=== PATIENT | female | born 1955 | race Caucasian/White ===

== ENCOUNTER → 2017-07-09 | Outpatient (CLI) | payer BC ==
--- NOTE | 2017-07-10 13:34 | MM ---
Reason for exam: screening (asymptomatic). Last mammogram was performed 1 year and 2 months ago. History: Patient is postmenopausal. Stereotactic core biopsy, March 16, 2002. Physical Findings: A clinical breast exam by your physician is recommended on an annual basis and results should be correlated with mammographic findings. MG Screening Mammo w CAD Bilateral CC and MLO view(s) were taken. Prior study comparison: May 15, 2016, bilateral MG screening mammo w CAD. April 04, 2015, bilateral MG screening mammo w CAD. August 25, 2013, bilateral digital screening mammo w/CAD. There are scattered fibroglandular densities. No significant changes when compared with prior studies. ASSESSMENT: Negative, BI-RAD 1 RECOMMENDATION: Routine screening mammogram of both breasts in 1 year.
== END | disposition home or self-care (01) ==
LOC: RADMAMWWP 16:46
PROVIDERS: ATTEND Internal Medicine
DX: Z12.31 Encounter for screening mammogram for malignant neoplasm of breast (principal)

== ENCOUNTER → 2018-08-06 | Outpatient (CLI) | payer BC ==
--- NOTE | 2018-08-07 11:50 | MM ---
Reason for exam: screening (asymptomatic). Last mammogram was performed 1 year and 1 month ago. History: Patient is postmenopausal. Stereotactic core biopsy, March 16, 2002. Physical Findings: A clinical breast exam by your physician is recommended on an annual basis and results should be correlated with mammographic findings. MG Screening Mammo w CAD Bilateral CC and MLO view(s) were taken. Prior study comparison: July 09, 2017, bilateral MG screening mammo w CAD. May 15, 2016, bilateral MG screening mammo w CAD. There are scattered fibroglandular densities. There is no discrete abnormality. No significant changes when compared with prior studies. ASSESSMENT: Negative, BI-RAD 1 RECOMMENDATION: Routine screening mammogram of both breasts in 1 year.
== END | disposition home or self-care (01) ==
LOC: RADMAMWWP 16:45
PROVIDERS: ATTEND Internal Medicine
DX: Z12.31 Encounter for screening mammogram for malignant neoplasm of breast (principal)
CPT/HCPCS: 77067

== ENCOUNTER → 2018-09-09 | Outpatient (CLI) | payer BC ==
--- NOTE | 2018-09-09 08:37 | US ---
EXAMINATION TYPE: US gallbladder DATE OF EXAM: 09/09/2018 COMPARISON: NONE CLINICAL HISTORY: 63-year-old female R10. 1 Right upper quad pain,. RUQ pain, NPO, no surgeries TECHNIQUE: Multiple sonographic images of the right upper quadrant are obtained. FINDINGS: EXAM MEASUREMENTS: Liver Length: 12.6 cm Gallbladder Wall: 0.1 cm CHD: 3.4 mm Right Kidney: 8.5 x 3.8 x 4.1 cm Pancreas: Suboptimal visualization of the pancreatic tail secondary to overlying bowel gas. Visualiz ed pancreatic head and body shows no gross abnormality. Liver: Some limitations due to rib shadowing. Overall homogeneous echotexture without focal lesion. Gallbladder: wnl Evidence for sonographic Liu's sign: neg CBD: Obscured by overlying bowel gas CHD: wnl Right Kidney: wnl IMPRESSION: 1. Limited visualization of the pancreatic tail. Rib shadowing and bowel gas limits portions of the l iver and lower bile duct as well. 2. Otherwise, no specific abnormality seen.
== END | disposition home or self-care (01) ==
LOC: RADUSWWP 07:26
PROVIDERS: ATTEND Internal Medicine Interventional Cardiology
DX: R14.3 Flatulence (principal); R10.11 Right upper quadrant pain
CPT/HCPCS: 76705

== ENCOUNTER → 2018-11-27 | Outpatient (CLI) | payer BC ==
--- NOTE | 2018-11-27 12:22 | XR ---
EXAMINATION TYPE: XR knee complete LT DATE OF EXAM: 11/27/2018 CLINICAL HISTORY: Left knee pain. TECHNIQUE: Three views of the left knee are obtained. COMPARISON: None. FINDINGS: There is no acute fracture/dislocation evident in left knee. There is mild to moderate tri compartment joint space loss. A fabella is present. The overlying soft tissue appears unremarkable. IMPRESSION: As above.
--- NOTE | 2018-11-27 13:24 | US ---
EXAMINATION TYPE: US venous doppler duplex LE LT DATE OF EXAM: 11/27/2018 12:47 PM COMPARISON: NONE CLINICAL HISTORY: M25.562 ACUTE PAIN OF LEFT KNEE. SIDE PERFORMED: Left TECHNIQUE: The lower extremity deep venous system is examined utilizing real time linear array sonog guanaco with graded compression, doppler sonography and color-flow sonography. VESSELS IMAGED: External Iliac Vein (EIV) Common Femoral Vein Deep Femoral Vein Greater Saphenous Vein * Femoral Vein Popliteal Vein Small Saphenous Vein * Proximal Calf Veins (* superficial vessels) Grayscale, color doppler, spectral doppler imaging performed of the deep veins of the left lower extr emity. There is normal flow, compressibility, vascular waveforms. Left Leg: Negative for DVT Popliteal fossa cyst noted measuring 3.0 x 3.1 x 1.0cm IMPRESSION: 1. No sonographic evidence of deep venous thrombosis within the left lower extremity. 2. Popliteal fossa cyst measuring 3.1 cm.
== END | disposition home or self-care (01) ==
LOC: RADUSWWP 11:56
PROVIDERS: ATTEND Internal Medicine
DX: M71.22 Synovial cyst of popliteal space [Baker], left knee (principal); M25.862 Other specified joint disorders, left knee

== ENCOUNTER → 2019-09-21 | Outpatient (CLI) | payer OTHER ==
--- NOTE | 2019-09-22 09:44 | MM ---
Reason for exam: screening (asymptomatic). Last mammogram was performed 1 year and 2 months ago. History: Patient is postmenopausal. Stereotactic core biopsy, March 16, 2002. Took hormonal contraceptives for 5 years. Took other hormone for 1 year. Physical Findings: A clinical breast exam by your physician is recommended on an annual basis and results should be correlated with mammographic findings. MG Screening Mammo w CAD Bilateral CC and MLO view(s) were taken. Prior study comparison: August 06, 2018, bilateral MG screening mammo w CAD. July 09, 2017, bilateral MG screening mammo w CAD. There are scattered fibroglandular densities. No suspicious abnormality. No significant changes when compared with prior studies. ASSESSMENT: Negative, BI-RAD 1 RECOMMENDATION: Routine screening mammogram of both breasts in 1 year.
== END | disposition home or self-care (01) ==
LOC: RADMAMWWP 16:49
PROVIDERS: ATTEND Internal Medicine
DX: Z12.31 Encounter for screening mammogram for malignant neoplasm of breast (principal)
CPT/HCPCS: 77067

== ENCOUNTER → 2020-05-17 | Outpatient (CLI) | payer OTHER ==
[2020-05-17 11:51] LABS: Appearance,Urine Clear (Clear); Bilirubin,Urine Negative (Negative); Blood,Urine Negative (Negative); Color,Urine Yellow; Glucose,Urine (UA) Negative (Negative); Ketones,Urine Negative (Negative); Leukocyte Esterase,Urine Negative (Negative); Nitrite,Urine Negative (Negative); PH, Urine 5.5 (5.0-8.0); Protein,Urine Trace (Negative); Urobilinogen,Urine <2.0 mg/dL (<2.0)
[2020-05-17 12:31] LABS: Basophils # (A) 0.1 k/uL (0-0.2); Basophils % (A) 1 %; Eosinophils # (A) 0.2 k/uL (0-0.7); Eosinophils % (A) 3 %; HCT 40.7 % (34.0-46.0); HGB 13.6 gm/dL (11.4-16.0); Lymphocytes # (A) 1.3 k/uL (1.0-4.8); Lymphocytes % (A) 26 %; MCHC 33.4 g/dL (31.0-37.0); MCV 89.9 fL (80.0-100.0); Mean Platelet Volume 7.9; Monocytes # (A) 0.4 k/uL (0-1.0); Monocytes % (A) 9 %; Neutrophils # (A) 2.8 k/uL (1.3-7.7); Neutrophils % (A) 58 %; Platelet Count 234 k/uL (150-450); RBC 4.52 m/uL (3.80-5.40); RDW 12.9 % (11.5-15.5); WBC 4.9 k/uL (3.8-10.6)
[2020-05-17 13:14] LABS: Protein/Creatinine Ratio,Urine 0.086
[2020-05-17 17:33] LABS: ALT 20 U/L (8-44); AST 23 U/L (13-35); African American GFR (CKD) 90.9 (60.0-200.0); Albumin/Globulin Ratio 1.91 (1.60-3.17); Alkaline Phosphatase 94 U/L (41-126); C Reactive Protein <0.4 mg/dL (0.0-0.8); Globulin 2.3 g/dL (1.6-3.3); Non-African American GFR(CKD) 78.5 (60.0-200.0); Rheumatoid Factor, Qnt 9 IU/mL (0-15); Total Bilirubin 0.3 mg/dL (0.3-1.2); Total Protein 6.7 g/dL (6.2-8.2)
[2020-05-17 18:31] LABS: Hepatitis A Antibody IgM Non-Reactive (Non-Reactive); Hepatitis B Core IgM Non-Reactive (Non-Reactive); Hepatitis B Surface Antigen Non-Reactive (Non-Reactive); Hepatitis C IgG Antibody Non-Reactive (Non-Reactive)
[2020-05-17 18:34] LABS: Anti-Smith Ab Interp NEGATIVE (NEGATIVE); Cyclic Citrull Pep IgG Unit 1.1 U/mL; Cyclic Citrullinated Pep IgG NEGATIVE (NEGATIVE); DNA Double-Stranded NEGATIVE (NEGATIVE)
[2020-05-17 20:14] LABS: Erythrocyte Sedimentation Rate 29 mm/Hr (0-30)
[2020-05-18 11:29] LABS: ANA Pattern Speckled
[2020-05-18 12:05] LABS: Immunoglobulin M 58.3 mg/dL (40.0-280.0)
[2020-05-18 13:47] LABS: Albumin 4.13 g/dL (3.80-4.90)
== END | disposition home or self-care (01) ==
LOC: LABWHC1 11:00
PROVIDERS: ATTEND Internal Medicine
DX: M32.9 Systemic lupus erythematosus, unspecified (principal); Z79.899 Other long term (current) drug therapy; R53.83 Other fatigue; R80.9 Proteinuria, unspecified
CPT/HCPCS: 36415; 80074; 80076; 81003; 82565; 82570; 82784; 84156; 84165; 84166; 85025; 85652; 86038; 86039; 86140; 86160; 86200; 86225; 86235; 86431

== ENCOUNTER → 2021-04-12 | Outpatient (CLI) | payer OTHER ==
--- NOTE | 2021-04-16 08:44 | MM ---
Reason for exam: screening (asymptomatic). Last mammogram was performed 1 year and 7 months ago. History: Patient is postmenopausal. Stereotactic core biopsy, March 16, 2002. Took hormonal contraceptives for 5 years. Took other hormone for 1 year. Physical Findings: A clinical breast exam by your physician is recommended on an annual basis and results should be correlated with mammographic findings. MG Screening Mammo w CAD Bilateral CC and MLO view(s) were taken. Prior study comparison: September 21, 2019, bilateral MG screening mammo w CAD. August 06, 2018, bilateral MG screening mammo w CAD. There are scattered fibroglandular densities. No significant changes when compared with prior studies. ASSESSMENT: Benign, BI-RAD 2 RECOMMENDATION: Routine screening mammogram of both breasts in 1 year.
== END | disposition home or self-care (01) ==
LOC: RADMAMWWP 16:02
PROVIDERS: ATTEND Internal Medicine
DX: Z12.31 Encounter for screening mammogram for malignant neoplasm of breast (principal); Z78.0 Asymptomatic menopausal state
CPT/HCPCS: 77067

== ENCOUNTER 2021-07-04 00:40 | Emergency (ER) | payer MEDICARE, OTHER ==
[2021-07-04 02:44] LABS: Basophils # (A) 0.1 k/uL (0-0.2); Basophils % (A) 1 %; Eosinophils # (A) 0.5 k/uL (0-0.7); Eosinophils % (A) 6 %; HCT 42.5 % (34.0-46.0); HGB 14.3 gm/dL (11.4-16.0); Lymphocytes # (A) 1.4 k/uL (1.0-4.8); Lymphocytes % (A) 18 %; MCH 30.6 pg (25.0-35.0); MCHC 33.5 g/dL (31.0-37.0); MCV 91.2 fL (80.0-100.0); Mean Platelet Volume 8.4; Monocytes # (A) 0.7 k/uL (0-1.0); Monocytes % (A) 8 %; Neutrophils # (A) 5.1 k/uL (1.3-7.7); Neutrophils % (A) 63 %; Platelet Count 251 k/uL (150-450); RBC 4.66 m/uL (3.80-5.40); RDW 12.6 % (11.5-15.5)
[2021-07-04 02:55] LABS: ALT 16 U/L (4-34); AST 28 U/L (14-36); African American GFR (CKD) >90 (>60 ml/min/1.73 sqM); Albumin 4.1 g/dL (3.5-5.0); Alkaline Phosphatase 139 U/L (38-126); Anion Gap 12 mmol/L; Blood Urea Nitrogen 13 mg/dL (7-17); Calcium 9.6 mg/dL (8.4-10.2); Carbon Dioxide 22 mmol/L (22-30); Chloride 106 mmol/L (98-107); Glucose 101 mg/dL (74-99); Lipase 118 U/L (23-300); Magnesium 1.9 mg/dL (1.6-2.3); Non-African American GFR(CKD) 87 (>60 ml/min/1.73 sqM); Potassium 3.8 mmol/L (3.5-5.1); Sodium 140 mmol/L (137-145); Total Bilirubin 0.4 mg/dL (0.2-1.3); Total Protein 7.2 g/dL (6.3-8.2)
[2021-07-04 02:56] LABS: Creatine Kinase 73 U/L (30-135); Creatine Kinase MB 1.4 ng/mL (0.0-2.4); Troponin I <0.012 ng/mL (0.000-0.034)
--- NOTE | 2021-07-04 03:34 | CT ---
EXAMINATION TYPE: CT angio chest DATE OF EXAM: 07/04/2021 COMPARISON: None HISTORY: SOB CT DLP: 261.8 mGycm Automated exposure control for dose reduction was used. CONTRAST: Performed with IV Contrast, patient injected with 65 mL of Isovue 370. There are 3-D post processed images. There is pulmonary emphysema. There is coarse reticular density in both lungs consistent with fibrosi s. There is a 1.5 cm stellate noncalcified density in the right middle lobe. There is large hiatal he rnia. Heart size is normal. There is no pericardial effusion. There are no hilar masses. There is no mediastinal adenopathy. Thoracic aorta is atheromatous. There is no aneurysm or dissection. The ascen ding aorta measures 3.4 cm. There is normal contrast opacification of the pulmonary arteries. There are no filling defects. Bony thorax is intact. There is normal alignment of the thoracic vertebra. There is minor spurring in the thoracic spine. Sternum is intact. The ribs appear intact. IMPRESSION: COPD and pulmonary fibrosis. There is no evidence of pulmonary embolism. Irregular 1.5 cm noncalcifie d infiltrate in the right middle lobe. Follow-up recommended. Tumor not excluded.
[2021-07-04] MEDS ORDERED: methylPREDNISolone SOD SUCCI 125 MG/2 ML VIAL ONE (23:59)
[2021-07-04] MEDS ORDERED: FAMOTIDINE 20 MG/2 ML VIAL ONE (23:59)
[2021-07-04] MEDS ORDERED: diphenhydrAMINE 50 MG/ML 1 ML VIAL ONE (23:59)
[2021-07-04] MEDS ORDERED: SODIUM CHLORIDE 0.9% 500 ML BAG ONE (23:59)
== END 2021-07-04 03:57 | disposition home or self-care (01) ==
LOC: EC 00:40
DX: R07.9 Chest pain, unspecified (principal); F41.9 Anxiety disorder, unspecified
CPT/HCPCS: 99285; 36415; 93005; 80053; 82550; 82553; 83690; 83735; 84100; 84484; 85025; 71275; J1200; J2930; Q9967

== ENCOUNTER → 2021-10-05 | Outpatient (CLI) | payer MEDICARE, OTHER ==
--- NOTE | 2021-10-05 16:24 | BD ---
EXAMINATION TYPE: Axial Bone Density DATE OF EXAM: 10/05/2021 COMPARISON: NONE CLINICAL HISTORY: Postmenopausal female. Height: 62 IN Weight: 151 LBS FRAX RISK QUESTIONS: Secondary Osteoporosis: 3. Menopause before 45: TOTAL HYST AGE 26 RISK FACTORS HISTORY OF: Active: YES Diet low in dairy products/other sources of calcium: YES Postmenopausal woman: TOTAL HYST AGE 26 Take estrogen and/or progesterone medications: NOT NOW How long: TOOK PREMARIN FOR 10 YEARS MEDICATIONS: Additional Medications: VIT D, HCTZ, SPIROLACTONE, OMEPRAZOLE, BABY ASPIRIN,EFFEXOR EXAM MEASUREMENTS: Bone mineral densitometry was performed using the [employer]. Bone mineral density as measured about the Lumbar spine is: ----- L1-L4(G/cm2): 1.041 T Score Values are as follows: ----- L2: -1.2 ----- L3: -0.6 ----- L4: -1.8 ----- L1-L4: -1.2 Bone mineral density BASELINE Bone mineral density about the R hip (g/cm2): 0.871 Bone mineral density about the L hip (g/cm2): 0.884 T Score values are as follows: -----R Neck: -1.2 -----L Neck: -1.1 -----R Total: -0.7 -----L Total: -0.7 Bone mineral density BASELINE IMPRESSION: Osteopenia (T Score between -2.5 and -1). There is slightly increased risk of fracture and the patient may be considered for treatment. Re-Screen 2-5 years. NOTE: T-SCORE=SD OF THE YOUNG ADULT MEAN.
== END | disposition home or self-care (01) ==
LOC: RADBDWWP 12:51
PROVIDERS: ATTEND Internal Medicine
DX: M85.89 Other specified disorders of bone density and structure, multiple sites (principal); Z78.0 Asymptomatic menopausal state
CPT/HCPCS: 77080

== ENCOUNTER → 2021-11-30 | Outpatient (CLI) | payer MEDICARE, BC ==
--- NOTE | 2021-11-30 13:19 | US ---
EXAMINATION TYPE: US abdomen complete DATE OF EXAM: 11/30/2021 COMPARISON: NONE CLINICAL HISTORY: R10.13 Epigastric pain. Epigastric pain with vomiting at night time, history of cur rent hiatal hernia EXAM MEASUREMENTS: Liver Length: 12.6 cm Gallbladder Wall: 0.2 cm CBD: 0.5 cm Spleen: 8.5 x 3.6 cm Right Kidney: 10.2 x 5.0 x 4.9 cm Left Kidney: 9.4 x 4.78 x 5.4 cm Pancreas: wnl Liver: Limited due to bowel gas Gallbladder: No stones seen Evidence for sonographic Liu's sign: No CBD: wnl Spleen: wnl Right Kidney: No hydronephrosis or masses seen Left Kidney: No hydronephrosis or masses seen Upper IVC: wnl Abd Aorta: wnl No abnormalities seen at this time. IMPRESSION: 1. Visualized portions of the abdomen ARE UNREMARKABLE.
== END | disposition home or self-care (01) ==
LOC: RADUSWWP 12:10
PROVIDERS: ATTEND Internal Medicine
DX: R10.13 Epigastric pain (principal); R10.811 Right upper quadrant abdominal tenderness
CPT/HCPCS: 76700

== ENCOUNTER → 2021-12-10 | Outpatient (CLI) | payer MEDICARE, BC ==
--- NOTE | 2021-12-10 09:20 | NM ---
Nuclear medicine hepatobiliary scan. HISTORY: Pain. DOSAGE: The patient received 8 ounces of ensure plus and 4.1 mCi of Technetium 99m Choletec. FINDINGS: There is normal hepatic extraction. The gallbladder is seen by 25 minutes. There is bilia ry to bowel clearance by 20 minutes. Ejection fraction is 82%. IMPRESSION: 1. No evidence of cholecystitis. 2. Ejection fraction of 92% can occasionally be associated with hyperdynamic gallbladder.
== END | disposition home or self-care (01) ==
LOC: RADNMMAIN 06:46
PROVIDERS: ATTEND Internal Medicine
DX: R10.13 Epigastric pain (principal)
CPT/HCPCS: 78226; A9537

== ENCOUNTER → 2023-09-19 | Outpatient (CLI) | payer BC, MEDICARE ==
--- NOTE | 2023-09-19 12:29 | CT ---
EXAMINATION TYPE: CT iac wo con DATE OF EXAM: 09/19/2023 COMPARISON: CT brain 09/12/2010 HISTORY: RT ear tinnitus CT DLP: 150.0mGycm Automated exposure control for dose reduction was used. FINDINGS: The external auditory canals are patent bilaterally. Mastoid air cells show no evidence of abnormal opacification bilaterally. The middle ear ossicles are symmetric and unremarkable. There is no evidence of suspicious surrounding soft tissue density to suggest cholesteatoma. The scutum is preserved bilaterally. The cochlea and the semicircular canals are symmetric and unremarkable. Ves tibular aqueduct and internal carotid canal appear unremarkable. Temporomandibular joints demonstrate bilateral arthropathy greater on the left. Mild changes of chron ic sinusitis. IMPRESSION: No significant abnormality seen to account for patient's symptoms.
== END | disposition home or self-care (01) ==
LOC: RADCTMAIN 09:03
PROVIDERS: ATTEND Otolaryngology
DX: H93.11 Tinnitus, right ear (principal)
CPT/HCPCS: 70480

== ENCOUNTER 2023-10-17 08:20 | Day surgery (SDC) | payer BC, MEDICARE, OTHER ==
[2023-10-14 12:16] VITALS: BMI 25.9
--- NOTE | 2023-10-17 00:52 | HP ---
HISTORY AND PHYSICAL CHIEF COMPLAINT: Perforation of the right tympanic membrane. HISTORY OF PRESENT ILLNESS: The patient is a 68-year-old female, who was recently seen in my office complaining of having ringing in the ears and also hearing loss mainly in the right ear. At that time, the patient was seen in my office. Audiological examination revealed she had a bilateral [id number] sensorineural hearing loss. In addition, the patient states that she had previously had a tympanoplasty done years ago by Dr. Iam Mckinney to repair a hole in her right eardrum. Since that time, the right ear has drained off and on. At the time that she was seen in my office, clinical examination of the patient's right ear revealed that she had a perforation encompassing approximately 15% of the right tympanic membrane. The middle ear ossicles appeared to be intact and the middle ear space was free of any infection or fluid. It was therefore recommended that the patient undergo insertion of Kartush patch under IV sedation with MAC. PAST MEDICAL HISTORY: The patient has allergies to codeine, Vicodin, IV dye, and Lortab. PREVIOUS SURGERIES: Include right tympanoplasty, total hysterectomy, appendectomy. She is 2 para, 2 , 0 . CURRENT MEDICATIONS: Include: 1. Prilosec. 2. Spironolactone. 3. Hydroxychloroquine. REVIEW OF SYSTEMS: Reveals that the, CARDIOVASCULAR SYSTEM: Positive for hypertension. GASTROINTESTINAL: Positive for GERD (gastroesophageal reflux disorder). MUSCULOSKELETAL SYSTEM: Positive for rheumatoid arthritis. The remainder of the review of systems is unremarkable. PHYSICAL EXAMINATION: GENERAL: The patient is a very pleasant 68-year-old female, who is alert and cooperative. HEENT: The patient is normocephalic. Examination of the left ear is unremarkable. Examination of the right ear reveals there is approximately 15% central perforation in the right tympanic membrane. The middle ear ossicles appeared to be intact and the middle ear space is free of any fluid or infection. Testing with a tuning fork reveals a right conductive hearing loss. Pupils equal, round, and reactive to light and accommodation. Extraocular movements within normal limits. Intranasal examination reveals moderate septal deviation with compensatory hypertrophy of the inferior turbinates bilaterally. There is a moderate amount of clear mucus on the mucous membranes and draining down the posterior pharynx. The remainder of the head and neck exam is unremarkable and within normal limits. CHEST/CARDIOVASCULAR: Both lung chambers are clear to percussion and auscultation. The patient is in regular sinus rhythm. S1 and S2 are present without any murmurs, S3s, or S4s. Peripheral pulses are bilaterally symmetrical. ABDOMEN: There is no evidence of any masses, megaly, or tenderness. The abdomen is soft. SKIN: Unremarkable. MUSCULOSKELETAL AND NEUROLOGICAL: Within normal limits. PELVIC/RECTAL: Deferred at this time because the patient has this done on a regular basis at her family physician's office. The remainder of physical exam is unremarkable. ASSESSMENT: Perforation of the right tympanic membrane. PLAN: The patient is scheduled to undergo an insertion of Kartush patch to a perforation of the right tympanic membrane under IV sedation with MAC or general anesthesia, depending on Anesthesia's preference. Attention, RNs in the pre-surgical area: I have not ordered any pre-surgical prophylactic antibiotics for this patient. If the pharmacy department sends any pre- surgical prophylactic antibiotics to the pre-surgical area for this patient, that order should be cancelled, and the medication should be returned to the pharmacy department. Please make sure that the patient's account is credited appropriately. I have discussed the risks, benefits and alternative therapies for the above-mentioned procedure and for both sedation/analgesia as well as necessary blood product administration, if indicated, as they pertain to this patient. The patient has indicated his or her understanding and acceptance of the risks and procedures discussed. MMODL / IJN: [id number] /
[~2023-10-17 08:20] MED LIST: DEXAMETHASONE SOD PHOSPHATE 4 MG/ML 1 ML VIAL IV ONE; LACTATED RINGERS 1,000 ML IV SCH; MIDAZOLAM 2 MG/2 ML VIAL IV PRN; ONDANSETRON 4 MG/2 ML VIAL IVP ONE; Pre Op ABX Message 1 EACH MISC MISCELLANE ONE; fentaNYL (PF) 50 MCG/ML 2 ML AMP IV PRN
[2023-10-17 09:06] VITALS: TEMP 97.6
[2023-10-17] MEDS ORDERED: PROPOFOL 10 MG/ML 20 ML VIAL IV ONE (09:53)
[2023-10-17] MEDS ORDERED: MIDAZOLAM 2 MG/2 ML VIAL ONE (09:53)
[2023-10-17] MEDS ORDERED: fentaNYL (PF) 50 MCG/ML 2 ML AMP ONE (09:53)
[2023-10-17] MEDS ORDERED: LIDOCAINE 1% INJ 10MG/ML (20 ML MDV) ONE (09:53)
[2023-10-17] MEDS ORDERED: OFLOXACIN 0.3% OPHTH DROPS 5 ML BOTTLE RIGHT EAR ONE ×2 (10:11→10:30)
[2023-10-17] MEDS ORDERED: LACTATED RINGERS 1,000 ML IV ONE (10:50)
[2023-10-17 11:58] VITALS: BP 118/82; PULSE 67; RESP 20
--- NOTE | 2023-10-20 17:07 | OP ---
OPERATIVE REPORT DATE OF SERVICE : 10/17/2023 PREOPERATIVE DIAGNOSIS: Perforation of the right tympanic membrane. POSTOPERATIVE DIAGNOSIS: Perforation of the right tympanic membrane. ANESTHESIA: IV sedation with MAC. OPERATIVE PROCEDURE: Insertion of a 7 mm Kartush patch to a perforation of the right tympanic membrane. COMPLICATIONS: None. DESCRIPTION OF PROCEDURE: The patient was placed on the operating table in supine position and after an uneventful IV sedation, satisfactory sedation was obtained. Next, the patient's right ear was draped in usual customary fashion. Following this, using the Zeiss operating microscope and a #3 aural speculum the right external auditory canal was cleansed of all wax and debris. Inspection revealed that the patient had a large central perforation of the right tympanic membrane. There was extensive scar tissue along the posterior aspect of the tympanic membrane remnant. This caused the posterior aspect of the tympanic membrane to be scarred down to the middle ear wall. The middle ear ossicles appeared to be intact and the middle ear space was free of any infection at this time. Initially, a 5 mm Kartush patch was inserted, this was found to be not large enough. Therefore, a 7 mm Kartush patch was inserted into the tympanic membrane perforation without any difficulty. It was noted that along the scarred portion of the tympanic membrane remnant that the seating of the Kartush patch was not as good as was expected. At this point, the procedure was terminated. There were no intraoperative complications. The patient tolerated the procedure well and was returned to the recovery room in satisfactory condition. MMODL / IJN: [id number] /
== END 2023-10-17 12:02 | disposition home or self-care (01) ==
LOC: OR 08:20
PROVIDERS: ATTEND Otolaryngology
DX: H72.91 Unspecified perforation of tympanic membrane, right ear (principal); H93.11 Tinnitus, right ear; H90.3 Sensorineural hearing loss, bilateral; K21.9 Gastro-esophageal reflux disease without esophagitis; Z90.49 Acquired absence of other specified parts of digestive tract; I10 Essential (primary) hypertension; M19.90 Unspecified osteoarthritis, unspecified site; Z88.5 Allergy status to narcotic agent; Z79.899 Other long term (current) drug therapy; Z88.6 Allergy status to analgesic agent; Z88.7 Allergy status to serum and vaccine; Z88.8 Allergy status to other drugs, medicaments and biological substances; Z91.041 Radiographic dye allergy status; Z85.118 Personal history of other malignant neoplasm of bronchus and lung; Z98.890 Other specified postprocedural states
CPT/HCPCS: 69610; J2250; J1100; J2405; J2001; J3010; J2704

== ENCOUNTER → 2023-10-21 | Outpatient (CLI) | payer BC, MEDICARE ==
--- NOTE | 2023-10-21 16:12 | MM ---
Reason for Exam: Screening (asymptomatic). Last mammogram was performed 2 year(s) and 7 month(s) ago. Patient History: Menarche at age 14. First Full-Term at age 18. Left ovary removed at age 27. Right ovary removed at age 27. Hysterectomy at age 27. Postmenopausal. Patient used Hormonal Contraceptives for 5 years. 03/16/2002, Stereotactic Core Biopsy. Risk Values: Lucina 5 year model risk: 1.4%. NCI Lifetime model risk: 5.0%. Prior Study Comparison: 08/06/2018 Bilateral Screening Mammogram, [facility]. 09/21/2019 Bilateral Screening Mammogram, [facility]. 04/12/2021 Bilateral Screening Mammogram, [facility]. Tissue Density: There are scattered fibroglandular densities. Findings: Analyzed By CAD. Pattern appears symmetrical and stable. No significant interval change is evident. Chronic nodularities in the upper outer posterior right breast, stable. No suspicious groups of microcalcifications, spiculated or lobular masses, architectural distortion or other secondary signs of malignancy are mammographically apparent. Overall Assessment: Benign, BI-RAD 2 Management: Screening Mammogram of both breasts in 1 year. A negative mammogram report should not preclude additional follow up of suspicious palpable abnormalities. Patient should continue monthly self breast exam. A clinical breast exam by your physician is recommended on an annual basis and results should be correlated with mammographic findings. Electronically signed and approved by: Boogie Miranda D.O. Radiologis
== END | disposition home or self-care (01) ==
LOC: RADMAMWWP 07:16
PROVIDERS: ATTEND Family Medicine
DX: Z12.31 Encounter for screening mammogram for malignant neoplasm of breast (principal); Z78.0 Asymptomatic menopausal state
CPT/HCPCS: 77067

== ENCOUNTER → 2023-12-05 | Outpatient (CLI) | payer BC, MEDICARE, OTHER ==
[2023-12-05 16:01] LABS: Blood Urea Nitrogen 15.6 mg/dL (9.0-27.0); Chloride 98 mmol/L (96-109); Glucose 85 mg/dL (70-110); Phosphorus 3.8 mg/dL (2.4-5.1); Sodium 137 mmol/L (135-145)
[2023-12-05 16:02] LABS: Albumin 4.3 g/dL (3.8-4.9); Calcium 9.7 mg/dL (8.7-10.3)
--- NOTE | 2023-12-05 16:52 | US ---
EXAMINATION TYPE: US kidneys/renal and bladder DATE OF EXAM: 12/05/2023 COMPARISON: 11/30/2021 - US Abdomen Complete CLINICAL INDICATION: Female, 68 years old with history of N20.0 NEPHROLITHIASIS; Hx Renal stones, Pro teinuria, and HTN EXAM MEASUREMENTS: Right Kidney: 9.4 x 5.5 x 4.2 cm Left Kidney: 9.0 x 5.1 x 4.0 cm No hydronephrosis. No discrete masses identified sonographically. Punctate echogenic foci could repre sent prominent vascular reflectors and/or a few punctate nonobstructive calculi. Bladder: Partial distention limits its evaluation. Bilateral Jets seen: Yes Normal Post Void Residual: NA IMPRESSION: 1. Punctate echogenic foci in both kidneys could represent a combination of prominent vascular reflec tors and tiny nonobstructive stones. 2. No hydronephrosis.
== END | disposition home or self-care (01) ==
LOC: RADUSWWP 07:24
DX: N20.0 Calculus of kidney (principal); N28.9 Disorder of kidney and ureter, unspecified; I10 Essential (primary) hypertension
CPT/HCPCS: 76770; 80069

== ENCOUNTER 2024-08-31 10:10 | Day surgery (SDC) | payer BC, MEDICARE ==
[2024-08-27 14:24] VITALS: BMI 27.1
[2024-08-31] MEDS: IV FLUID CONTINUATION 1,000 ML IV ONE (10:42)
[2024-08-31 10:45] VITALS: TEMP 97
[2024-08-31] MEDS: LACTATED RINGERS 1,000 ML IV SCH (10:51)
[2024-08-31] MEDS ORDERED: LIDOCAINE 1% INJ 10MG/ML (20 ML MDV) ONE (11:14)
[2024-08-31] MEDS ORDERED: PROPOFOL 10 MG/ML 20 ML VIAL IV ONE (11:14)
--- NOTE | 2024-08-31 11:17 | P.GSHP ---
History of Present Illness H&P Date: 08/31/24 Chief Complaint: Colon cancer screening 69-year-old female here for colonoscopy. Last colonoscopy 8 years ago. Patient has a family history of colon cancer in her sibling. No bowel complaints. No previous polyps. Past Medical History Past Medical History: Cancer, GERD/Reflux, Hypertension Additional Past Medical History / Comment(s): lupus, lung History of Any Multi-Drug Resistant Organisms: None Reported Past Surgical History: Heart Catheterization, Hysterectomy Additional Past Surgical History / Comment(s): lobectomy, colonoscopy Past Anesthesia/Blood Transfusion Reactions: No Reported Reaction Additional Past Anesthesia/Blood Transfusion Reaction / Comment(s): no blood transfusion Smoking Status: Former smoker - Past Family History Mother Family Medical History: Cancer Additional Family Medical History / Comment(s): cervical skin Father Family Medical History: Cancer Additional Family Medical History / Comment(s): prostate asbestoso skin Sister(s) Family Medical History: Cancer Additional Family Medical History / Comment(s): lung cancer adenocarcinoma Brother(s) Family Medical History: Cancer Additional Family Medical History / Comment(s): colon and throat Medications and Allergies Home Medications Medication Instructions Recorded Confirmed Type Aspirin [Adult Low Dose Aspirin EC] 81 mg PO DAILY 07/09/16 08/31/24 History Hydroxychloroquine Sulfate 300 mg PO DAILY 07/09/16 08/31/24 History [Plaquenil] Omeprazole [PriLOSEC] 20 mg PO AC-BID 07/09/16 08/31/24 History Cholecalciferol (Vitamin D3) 125 mcg PO DAILY 10/14/23 08/31/24 History [Vitamin D3 (125 MCG = 5,000 IU)] Chlorthalidone [Thalitone] 12.5 mg PO DAILY 08/27/24 08/31/24 History Ezetimibe [Zetia] 10 mg PO DAILY 08/27/24 08/31/24 History Allergies Allergy/AdvReac Type Severity Reaction Status Date / Time acetaminophen Allergy Unknown Verified 08/31/24 10:38 [From Darvocet-N] codeine Allergy Rash/Hives Verified 08/31/24 10:38 hydrocodone [From Lortab] Allergy "Brain Verified 08/31/24 10:38 felt like it was on fire." hydrocodone bitartrate Allergy Unknown Verified 08/31/24 10:38 [From Vicodin] iodine Allergy Rash/Hives Verified 08/31/24 10:38 Iodine and Iodide Containing Allergy Dyspnea/SOB Verified 08/31/24 10:38 Produc propoxyphene HCl Allergy Dyspnea/hiv Verified 08/31/24 10:38 [From Darvon] es propoxyphene napsylate Allergy Unknown Verified 08/31/24 10:38 [From Darvocet-N] Surgical - Exam Vital Signs Temp Pulse Resp BP Pulse Ox 97.0 F L 88 16 162/108 94 L 08/31/24 10:44 08/31/24 10:44 08/31/24 10:44 08/31/24 10:44 08/31/24 10:44 Physical exam: General: Well-developed, well-nourished HEENT: Normocephalic, sclerae nonicteric Abdomen: Nontender, nondistended Extremities: No edema Neuro: Alert and oriented Assessment and Plan (1) Colon cancer screening Narrative/Plan: Will proceed with colonoscopy at this time. Current Visit: Yes Status: Acute Code(s): Z12.11 - ENCOUNTER FOR SCREENING FOR MALIGNANT NEOPLASM OF COLON SNOMED Code(s): 837285917
--- NOTE | 2024-08-31 11:28 | P.PCN ---
Date of Procedure: 08/31/24 Procedure(s) Performed: PREOPERATIVE DIAGNOSIS: Screening with family history of colon cancer POSTOPERATIVE DIAGNOSIS: Mild diverticulosis PROCEDURE: Colonoscopy ANESTHESIA: MAC SURGEON: Bayron Mckenzie M.D. SPECIMENS: None ENDOSCOPIC PROCEDURE: The patient was placed on the endoscopy table in the left decubitus position. The Olympus colonoscope was inserted into the anus and passed under direct visualization to the base of the cecum. The appendiceal orifice was visualized. From that point the scope was slowly withdrawn inspecting all surfaces carefully. There were no neoplastic inflammatory or polypoid lesions throughout the cecum, ascending, transverse, descending, sigmoid and rectum. There was mild left-sided diverticulosis noted. Digital rectal examination was normal. The patient was taken to the recovery room in stable condition per anesthesia guidelines. RECOMMENDATIONS: Resume diet. Repeat colonoscopy 5 years.
[2024-08-31 11:45] VITALS: BP 113/74; PULSE 76; RESP 16
== END 2024-08-31 12:05 | disposition home or self-care (01) ==
LOC: ORWHC2ENDO 10:10
PROVIDERS: ATTEND Surgery
DX: Z12.11 Encounter for screening for malignant neoplasm of colon (principal); K57.30 Diverticulosis of large intestine without perforation or abscess without bleeding; Z80.0 Family history of malignant neoplasm of digestive organs; I10 Essential (primary) hypertension; K21.9 Gastro-esophageal reflux disease without esophagitis; M32.9 Systemic lupus erythematosus, unspecified; Z87.891 Personal history of nicotine dependence; Z79.899 Other long term (current) drug therapy; Z79.82 Long term (current) use of aspirin; Z90.710 Acquired absence of both cervix and uterus; Z88.6 Allergy status to analgesic agent; Z88.5 Allergy status to narcotic agent; Z88.8 Allergy status to other drugs, medicaments and biological substances
CPT/HCPCS: 45378; J2003; J2704

== ENCOUNTER → 2024-10-26 | Outpatient (CLI) | payer BC, MEDICARE ==
--- NOTE | 2024-10-26 08:32 | MM ---
Reason for Exam: Screening (asymptomatic). Last screening mammogram was performed 12 month(s) ago. Patient History: Menarche at age 14. First Full-Term at age 18. Left ovary removed at age 27. Right ovary removed at age 27. Hysterectomy at age 27. Postmenopausal. Patient used Hormonal Contraceptives for 5 years. 03/16/2002, Stereotactic Core Biopsy. Risk Values: Lucina 5 year model risk: 1.5%. NCI Lifetime model risk: 4.8%. Prior Study Comparison: 09/21/2019 Bilateral Screening Mammogram, [facility]. 04/12/2021 Bilateral Screening Mammogram, [facility]. 10/21/2023 Bilateral MG screening mammo w CAD, [facility]. Tissue Density: There are scattered areas of fibroglandular density. Findings: Analyzed By CAD. Right breast: There is no suspicious group of microcalcifications or new suspicious mass. Benign-appearing calcifications right breast. Left breast: There is no suspicious group of microcalcifications or new suspicious mass. Benign-appearing calcifications left breast. Overall Assessment: Benign, BI-RAD 2 Management: Screening Mammogram of both breasts in [address] [facility] will attempt to contact patient to return for supplemental views and ultrasound if indicated. Patient should continue monthly self-breast exams. A clinical breast exam by your physician is recommended on an annual basis. This exam should not preclude additional follow-up of suspicious palpable abnormalities. Note on Lucina scores and lifetime risk: 1. A Lucina score greater than 3% is considered moderate risk. If this is the case, consider specialist referral to assess eligibility for a risk reducing agent. 2. If overall lifetime risk for the development of breast cancer is 20% or higher, the patient may qualify for future screening with alternating mammogram and breast MRI. [facility], , 10/26/2024 8:29 AM. Electronically signed and approved by: Stevie Koenig DO
== END | disposition home or self-care (01) ==
LOC: RADMAMWWP 06:55
PROVIDERS: ATTEND Family Medicine
DX: Z12.31 Encounter for screening mammogram for malignant neoplasm of breast (principal); Z90.722 Acquired absence of ovaries, bilateral; Z78.0 Asymptomatic menopausal state; R92.323 Mammographic fibroglandular density, bilateral breasts
CPT/HCPCS: 77067